=== PATIENT | female | born 2005 | race Caucasian/White ===

== ENCOUNTER 2025-06-02 18:22 | Emergency (ER) | payer MEDICAID ==
[~2025-06-02] VITALS: Ht 160 cm; Wt 65.0 kg
[2025-06-02 18:42] VITALS: BP 108/48; TEMP 36.9; O2SAT 100
[2025-06-02 18:45] VITALS: PULSE 104; RESP 16; O2SAT 99
[2025-06-02] MEDS ORDERED: WATER FOR IRRIGATION,STERILE 500 ML IRRIG.SOLN IR ONE (20:45)
[2025-06-02] MEDS: BACITRACIN ZINC OINT UDPKT TOP ONE (21:00)
[2025-06-02] MEDS ORDERED: METR-167 MT (22:29)
[2025-06-02] MEDS ORDERED: BO1 TP (22:29)
[2025-06-02] MEDS ORDERED: SULF1TAB48 MT (22:29)
== END 2025-06-02 23:00 | disposition home or self-care (01) ==
LOC: ER 18:22
DX: S90.02XA Contusion of left ankle, initial encounter (principal); S05.12XA Contusion of eyeball and orbital tissues, left eye, initial encounter; S80.812A Abrasion, left lower leg, initial encounter; S80.811A Abrasion, right lower leg, initial encounter; S40.812A Abrasion of left upper arm, initial encounter; S40.811A Abrasion of right upper arm, initial encounter; Z79.899 Other long term (current) drug therapy; Z88.0 Allergy status to penicillin; W50.3XXA Accidental bite by another person, initial encounter; Y93.89 Activity, other specified; Y92.89 Other specified places as the place of occurrence of the external cause; Y99.8 Other external cause status
CPT/HCPCS: 99283